=== PATIENT | female | born 1935 | race Caucasian/White ===

== ENCOUNTER 2016-08-17 10:40 | Emergency (ER) | payer OTHER, BC ==
[~2016-08-17] VITALS: Ht 154.9 cm; Wt 69.1 kg
[~2016-08-17 10:40] MED LIST: ASPIR 8181 M1 PO; CALCIUM + D3 E1 EACH PO; FERROUS SULFAT325 MG PO; GLIMEPIRIDE2 MG PO; LEVOTHYROXINE75 MCG PO; LOVENOX40 MG/0.4 SC; MELOXICAM7.5 MG PO; METOPROLOL SUCC50 MG PO; NITROSTAT0.4 MG SL; PERCOCET 5/31 TABLET PO; RAMIPRIL2.5 MG PO; SENNA PLUS TAB1 EACH PO; TYLENOL REGULA325 MG PO; VYTORIN 10/21 TABLET PO
[2016-08-17] MEDS ORDERED: ENDOCET 5-3251 EACH PO (11:22)
[2016-08-17 12:58] VITALS: BP 156/71
== END 2016-08-17 12:58 | disposition home or self-care (01) ==
LOC: EME 10:40
DX: S00.11XA Contusion of right eyelid and periocular area, initial encounter (principal); H11.31 Conjunctival hemorrhage, right eye; W06.XXXA Fall from bed, initial encounter; Y93.84 Activity, sleeping; Y92.003 Bedroom of unspecified non-institutional (private) residence as the place of occurrence of the external cause; I10 Essential (primary) hypertension; E11.9 Type 2 diabetes mellitus without complications
CPT/HCPCS: 70450; 99281; 99283